=== PATIENT | male | born 1955 | race Caucasian/White ===

== ENCOUNTER 2022-06-22 08:17 | Observation (INO) ==
[2022-06-22 09:08] LABS: INR 0.9 (0.89-1.11)
[2022-06-22] MEDS ORDERED: ceFAZolin 1 GM ADVAN 1 GM ADDV.VIAL IVPB ONE (09:38)
[2022-06-22] MEDS ORDERED: fentaNYL 100 mcg/2 ml 50 MCG/ML VIAL ONE ×2 (09:38→11:05)
[2022-06-22] MEDS ORDERED: Midazolam 2 mg/2 ml VIAL 1 mg/ml 2 ml VIAL (2 mg) ONE (09:38)
[2022-06-22] MEDS ORDERED: Lidocaine 2% JELLY 6 ML Topical TOPICAL ONE (10:24)
[2022-06-22] MEDS ORDERED: Bupivacaine 0.5% PF 10 ML SDV VIAL INJ ONE (10:24)
[2022-06-22] MEDS ORDERED: Ondansetron ODT 4 mg TAB 4 MG TAB SL PRN (11:09)
[2022-06-22] MEDS: NS 0.9% 1000 ml BAG 1,000 ML IV SCH (12:41)
[2022-06-22] MEDS ORDERED: Morphine 2 MG/ML SYRINGE IV PRN (13:06)
[2022-06-23] MEDS: NS 0.9% 1000 ml BAG 1,000 ML IV SCH (02:55)
[2022-06-23 05:29] LABS: ABS Lymphocytes 0.4 10^3/ul (1.0-4.8); ABS Monocytes 0.4 10^3/ul (0-0.8); Eosinophil % 0.3 %; Hematocrit 36 % (42-52); Hemoglobin 11.7 g/dL (14.0-18.0); Lymphocyte % 13.1 %; Mean Corpuscular HGB Conc 33 g/dL (31-36); Mean Corpuscular Hemoglobin 30 pg (27-31); Mean Corpuscular Volume 91 fL (80-94); Mean Platelet Volume 6.8 fL (7.4-10.4); Platelet Count 109 10^3/uL (150-450); Red Blood Count 3.93 10^6 /uL (4.18-5.48); Red Cell Distribution Width 16 % (10-15); White Blood Count 2.8 10^3/uL (3.5-10.8)
[2022-06-23 05:53] LABS: Albumin 3.6 g/dL (3.2-5.2); Albumin/Globulin Ratio 1.6 (1-3); Calcium 8.1 mg/dL (8.6-10.3); Globulin 2.2 g/dL (2-4); Potassium 4.3 mmol/L (3.5-5.0); Total Bilirubin 0.6 mg/dL (0.2-1.0); Total Protein 5.8 g/dL (6.4-8.9); eGFR CKD-EPI 102.3 (>60)
[2022-06-23 08:11] VITALS: BP 176/86
== END 2022-06-23 09:35 | disposition home or self-care (01) ==
LOC: SSU 08:17 → SP 08:17 → SSU 06-23 00:34
PROVIDERS: ADMIT Internal Medicine Medical Oncology; ATTEND Internal Medicine Medical Oncology